=== PATIENT | female | born 1990 | race African-American/Black ===

== ENCOUNTER 2018-12-06 05:33 | Inpatient (IN) | payer OTHER ==
--- NOTE | 2018-12-06 05:53 | PDOC.FPROB ---
FMR OB H&P: HPI - History of Present Illness Chief Complaint: elective IOL Indentification: History of Present Illness: The patient is a 28YO @ 39.3 weeks by LMP c/w 11.0 week sono who presents to L&D for an elective IOL. The patient reports possibly losing her mucus plug on 12/04/18, and endorses periodic contractions but says that they are not very strong. She denies any vaginal bleeding, LOF, discharge or pain but does endorse some vaginal pressure. She also endorses some urinary frequency but denies any dysuria or hematuria. She endorses regular movement. Primary Care Physician: ANIYA Bhat/Rebel FMR OB H&P: Current - Care : 6 Para: [id number] Gestational age: 39.3 weeks Due date: 12/10/18 Dating Criteria: LMP c/w 11.0 week sono Course/Complications: GBS + - OB Labs Blood type: O RH: positive Antibody Screen: negative HIV: negative RPR: negative HepBsAg: negative Rubella: immune Urine drug screen: negative Gonorrhea: negative Chlamydia: negative 1 hour gtt: 126 A1c: 5.4 GBS: positive H&H: 11.2/34 on 09/27/18 Platelets: 308 on 09/27/18 - First Trimester Ultrasound First trimester: live sIUP @ 11.0 weeks c/w LMP - Anatomy Survey Anatomy survey: Low-lying posterior placenta @ 22.3 weeks but otherwise normal anatomy scan in cephalic presentation. Female fetus noted. - Additional Ultrasound Additional: Posterior fundal placenta confirmed on 09/14/18 but pyelectatsis noted. Patient then saw [facility] who confirmed renal anatomy was WNLs on 10/12/18. 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 - Family History Family History: DMII & HTN- maternal grandmother FMR OB H&P: Medications - Current Home Medications: Medication Instructions Recorded Confirmed Type Pnv No.95/Ferrous Fum/Folic AC 1 each PO 12/06/18 History [ Caplet] Allergies/Adverse Reactions: Allergies Allergy/AdvReac Type Severity Reaction Status Date / Time No Known Allergies Allergy Verified 12/06/18 06:23 FMR OB H&P: ROS - Review of Systems General: denies: fever/chills Eyes: denies: vision changes, scotomas, floaters ENT: denies: nasal congestion, sore throat Cardiovascular: denies: chest pain, palpitation, edema Respiratory: denies: cough, shortness of breath Gastrointestinal: denies: abdominal pain, nausea, vomiting, diarrhea, constipation Genitourinary (Female): reports: polyuria, contractions, vaginal pressure. denies: dysuria, hematuria, vaginal discharge, vaginal pain, vaginal bleeding Musculoskeletal: denies: pain, swelling Neurologic: reports: loss of counsciousness. denies: numbness, headache Integumentary: denies: itching, rash FMR OB H&P: Vital Signs - Maternal Vital signs: HR: 104 BP: 137/67 O2 sat: 100% on RA - Heart Tones Baseline: 130 Variability: moderate Acceleration: present Deceleration: absent [place] contractions every: 4-7 minutes FMR OB H&P: Physical Exam - Physical Exam General: NAD, awake, alert and oriented HEENT: normocephalic and atraumatic, grossly normal vision, grossly normal hearing Neck: supple, FROM Heart: RRR, normal S1/S2 General: CTAB, no respiratory distress, good air movement, no rales/rhonchi, no wheezing, no retractions Abdomen: gravid, non-tender Musculoskeletal: normal gait and station, FROM in all four extremities Neurological: cranial nerves II through XII intact, sensation to pain,touch and proprioception grossly normal, no focal deficit Skin: no rash, good tugor, capillary refill <2 seconds, no jaundice Lymphatic: no unusual bruising or bleeding, no purpura, no petechia Psychiatric: intact recent and remote memory, good judgement and insight, normal mood and affect - Pelvic Exam Vulva: normal hair distribution, appropriate nate stage, no masses, no lesions SVE: 3/50/-1 Marshall score: 7 Membranes: intact Presentation: cephalic FMR OB H&P: A/P - Problem List (1) Multigravida in third trimester Current Visit: Yes Status: Acute Code(s): Z34.83 - ENCOUNTER FOR SUPRVSN OF NORMAL , THIRD TRIMESTER (2) Positive GBS test Current Visit: Yes Status: Acute Code(s): B95.1 - STREPTOCOCCUS, GROUP B, CAUSING DISEASES CLASSD ELSWHR (3) History of GBS (group B streptococcus) UTI, currently Current Visit: Yes Status: Chronic Code(s): O09.899 - SUPERVISION OF OTHER HIGH RISK PREGNANCIES, UNSP TRIMESTER; Z87.440 - PERSONAL HISTORY OF URINARY ( TRACT) INFECTIONS Disposition: @ 39.3 weeks by LMP c/w 11.0 week sono who presented to L&D for a scheduled elective IOL. multigravidada term elective IOL: - SVE /1, unchanged from clinic exam on 12/03/18. Lori every 4-7 minutes and FHTs reassuring cat 1 tracing. Baseline in the 130s w/ moderate variability & accels present. - Will administer PCN bolus of 5 million units before augmenting labor to ensure patient is adequately treated prior to delivery. - Will start on IVFs w/ LR @ 125mL/hr & make NPO w/ ice chips only. - Routine labs pending. - Patient does not desire epidural so PRN stadol ordered for pain control. GBS +: - Aware, will give bolus dose of PCN now and then augment labor with pitocin to ensure adequate treatment before delivery as patient's cervix is already favorable and she is a multigravida. h/o pre-e in prior : - Aware, no issues w/ BP this . - Will continue to monitor BPs closely and treat PRN. h/o GBS bacteruria in previous : - Aware. Discussion: Date/Time: 12/06/18 3216 This H&P was discussed with Dr. Sandhu and Dr. Luis who agree with the above documentation and plan. Addendum - Attending - Attending Attestation Date/Time: 12/06/18 1152 I personally evaluated the patient and discussed the management with Dr. Luque I agree with the History, Examination, Assessment and Plan documented above with any addition or exceptions noted below. 28yo at 39w3d dated by LMP c/w 11.0 week sono presenting for elective induction of labor. 1. GBS positive. Start PCN prophylaxis 2. Morbid obesity with BMI 42.4 3. H/O preeclampsia in prior . BP normotensive this . Not on ASA 4. Grand multiparity. Uterotonics at delivery. Reassuring FHT. Anticipate
[2018-12-06] MEDS ORDERED: Misoprostol 200 MCG TAB PR PRN (05:59)
[2018-12-06] MEDS ORDERED: Methylergonovine 0.2 MG/ML VIAL IM PRN (05:59)
[2018-12-06] MEDS ORDERED: Butorphanol Tartrate 1 MG/ML VIAL SLOW IVP PRN (05:59)
[2018-12-06] MEDS ORDERED: Carboprost 250 MCG/ML AMP IM PRN (05:59)
[2018-12-06] MEDS ORDERED: NS / Oxytocin 40 units/1000ml 1,000 ML IV PRN (05:59)
[2018-12-06] MEDS ORDERED: Ondansetron PF 4 MG/2 ML Vial IVP PRN (05:59)
[2018-12-06] MEDS ORDERED: Promethazine HCl 25 MG/ML VIAL IM PRN (05:59)
[2018-12-06] MEDS ORDERED: Lidocaine 1% (PF) 30 ML VIAL SC PRN (05:59)
[2018-12-06] MEDS ORDERED: Lactated Ringer's 1,000 ML IV SCH (06:00)
[2018-12-06] MEDS ORDERED: NS w/ Oxytocin 10 units 500 ML IV SCH (06:00)
[2018-12-06] MEDS ORDERED: Penicillin G Potassium 5 MILL.UNITS in Sodium Chloride 0.9% 100 ML IVPB SCH (06:00)
[2018-12-06 06:31] VITALS: BMI 42.4
[2018-12-06] MEDS ORDERED: Ibuprofen 800 MG TAB PO SCH (07:00)
[2018-12-06 07:07] LABS: Hemoglobin 11.4 g/dL (12.0-16.0); Mean Corpuscular HGB CONC 32.6 g/dL (32.0-36.0); Mean Corpuscular Hemoglobin 26.2 pg (27.0-31.0); Mean Corpuscular Volume 80.6 fL (78.0-98.0); Mean Platelet Volume 7.6 fL (7.4-10.4); Platelet Count 306 thou/uL (130-400); Red Blood Cell (RBC) Count 4.36 mill/uL (4.20-5.40); White Blood Cell (WBC) Count 7.8 thou/uL (4.8-10.8)
[2018-12-06 07:51] LABS: HBSAg Index 0.29 S/CO (0-0.99); Hep B Surf Ag Non-Reactive S/CO (NonReactive)
[2018-12-06 07:56] LABS: Syphilis Antibody Nonreactive (Nonreactive); Syphilis Antibody Index 0.04 S/CO (<1.00 Non-Reactive)
[2018-12-06] MEDS ORDERED: Penicillin G 2.5 MILL.units 2.5 MILL.UNITS in Premix Bag 1 BAG IVPB SCH (10:00)
--- NOTE | 2018-12-06 11:45 | PDOC.OPDEL ---
OB Operative/Delivery Note Delivery Dr/Surgeon: Rebel/Toby Assist: Perlita Pre-Delivery Diagnosis: elective induction Procedure/Post Delivery Dx: spontaneous vaginal delivery Weeks gestation: 39 (39.3) Anesthesia: other (Stadol IV) - Additional Findings/Plan Placenta delivered: spontaneous Repaired Obstetrical Laceration: none Estimated blood loss: 220mL Compilations/Other Findings: Delivering Physician: Dr. Shreya Luque/ Dr. Sin Luis/Dr. Oneal Bhat Attending: Dr. Mi Sandhu Procedure: Spontaneous Vaginal Delivery Anesthesia: IV stadol PRN QBL: 220 ml Pre-op Diagnosis: 1. Scheduled elective induction of labor 2. Term intrauterine 3. Hx of preeclampsia 4. GBS culture positive in current Post-op Diagnosis: 1. Scheduled elective induction of labor 2. Term intrauterine 3. Hx of preeclampsia 4. GBS culture positive in current Indications: A 28 y/o female presents to L&D for a scheduled elective induction. Delivery Note: This is 28 yo F @ 39.3 wks who delivered a viable F at 11:28 on 12/06/18. Following an uneventful antepartum course, a vigorous female was delivered over an intact perineum in a compound hand/ occipitoanterior presentation. Anterior shoulder and then remainder of the body delivered. No nuchal cord. The head was held down and mouth and nares were bulb suctioned. Cord clamped and cut and cord blood collected. Placenta delivered intact in the Guzman presentation with a 3 vessel cord noted. Fundal massage was performed and the fundus was firm. The cervix and vagina were inspected and found to be free of lacerations. went to nursery in good condition for routine care. Apgars were 9/9 at 1 & 5 minutes, respectively. Patient tolerated delivery well and went to after routine recovery/ care. Attending Addendum: I was present for and assisted in the uncomplicated performed by Rebel Castillo and Perlita. I agree with the documentation as above. Post delivery plan: routine recovery
[2018-12-06] MEDS ORDERED: Bisacodyl 10 MG SUPP PR PRN (13:12)
[2018-12-06] MEDS ORDERED: Adacel (T-DAP) 0.5 ML SYRINGE IM ONE (13:12)
[2018-12-06] MEDS ORDERED: Milk Of Magnesia 30 ML UDCUP PO PRN (13:12)
[2018-12-06] MEDS ORDERED: NS / Oxytocin 40 units/1000ml 1,000 ML IV SCH (13:12)
[2018-12-06] MEDS: Ibuprofen 800 MG TAB PO SCH ×2 (14:15→21:49)
[2018-12-06] MEDS: Ferrous Sulfate 325 MG TAB PO SCH (14:34)
[2018-12-06] MEDS: Docusate Calcium (SURFAK) 240 MG CAP PO SCH (21:49)
[2018-12-07] MEDS: Ibuprofen 800 MG TAB PO SCH ×2 (05:50→13:49)
[2018-12-07 06:25] VITALS: TEMP 98.4
[2018-12-07 07:25] LABS: Hemoglobin 9.8 g/dL (12.0-16.0); Mean Corpuscular HGB CONC 32.4 g/dL (32.0-36.0); Mean Corpuscular Hemoglobin 26.4 pg (27.0-31.0); Mean Corpuscular Volume 81.3 fL (78.0-98.0); Mean Platelet Volume 7.4 fL (7.4-10.4); Platelet Count 278 thou/uL (130-400); RBC Distribution Width 14.1 % (11.5-14.5); Red Blood Cell (RBC) Count 3.73 mill/uL (4.20-5.40); White Blood Cell (WBC) Count 6.5 thou/uL (4.8-10.8)
--- NOTE | 2018-12-07 08:17 | PDOC.OBPPN ---
FMR OB PN: Subj - Interval History Hospital Day: 2 Day: 1 Chief Complaint: Labor, delivered Interval History: Pain controlled, ambulating, voiding. Bleeding similar to period. Taking PO FMR OB PN: Obj - Maternal Vital signs: BP: [] HR: [] RR: [] Tmax: [] Pox: []% on [] Wt: [] - Urine output I&O: 12/06/18 12/07/18 12/08/18 06:59 06:59 06:59 Intake Total 1300 Balance 1300 - Lochia Lochia: similar to period - Pain Management Intervention: oral medication FMR OB PN: Exam - Physical Exam General: NAD, awake, alert and oriented HEENT: normocephalic and atraumatic, PERRLA Heart: RRR General: CTAB, no respiratory distress Abdomen: soft, bowel sound present, other (ATTP, fundus of uterus just below the umbilicus. Firm) Musculoskeletal: FROM in all four extremities Neurological: cranial nerves II through XII intact Psychiatric: good judgement and insight FMR OB PN: Data - Labs Lab results: Laboratory Results - last 24 hr 12/07/18 07:04 WBC 6.5 RBC 3.73 L Hgb 9.8 L Hct 30.3 L MCV 81.3 MCH 26.4 L MCHC 32.4 RDW 14.1 Plt Count 278 MPV 7.4 FMR OB PN: A/P - Problem List (1) care and examination Current Visit: Yes Status: Acute Code(s): Z39.2 - ENCOUNTER FOR ROUTINE FOLLOW-UP Assessment and Plan: Pt's overall doing well w/ pain controlled on PO ibuprofen Ambulating and voiding w/o issue Umbilicus firm just below the umbilicus Vaginal bleeding appropriate Will plan to check daughter's bilirubin at 24 hours of life and d/c both Mom and Baby pending this lab value Follow-up in clinic in 2 weeks s/p d/c Discussion: Date/Time: 12/07/18 0816 This H&P was discussed with [] and [] who agree with the above documentation and plan. Addendum - Attending - Attending Attestation Date/Time: 12/07/18 1325 I personally evaluated the patient and discussed the management with Dr. Bhat I agree with the History, Examination, Assessment and Plan documented above with any addition or exceptions noted below. Stable PPD #1 s/p uncomplicated Vitals reviewed and all WNL Meeting appropriate milestones. Parents requesting early discharge if baby also ready to go.
[2018-12-07 08:19] VITALS: BP 91/55
[2018-12-07] MEDS: Ferrous Sulfate 325 MG TAB PO SCH (08:56)
[2018-12-07] MEDS: Docusate Calcium (SURFAK) 240 MG CAP PO SCH (08:56)
== END 2018-12-07 14:30 | disposition home or self-care (01) | DRG 807 ==
LOC: L&D/OP 05:33 → L&D 05:37 → 3SW 13:58
PROVIDERS: ADMIT Family Medicine; ATTEND Family Medicine
PROC: 10E0XZZ Delivery of Products of Conception, External Approach (ICD-10-PCS; principal; 2018-12-06)
DX: O99.824 Streptococcus B carrier state complicating childbirth (principal); Z37.0 Single live birth; Z3A.39 39 weeks gestation of pregnancy
CPT/HCPCS: 36415; 85027; 86780; 86850; 86900; 86901; 87340; 90715; J0595; J2001; J2540; J7050